=== PATIENT | female | born 1970 | race Caucasian/White ===

== ENCOUNTER → 2016-12-09 | Outpatient (CLI) | payer BC ==
[~2016-12-09] MED LIST: CELE50CA PO; KETO10TA PO; MULT-506 PO; OXYC-57 PO
[2016-12-09 13:24] LABS: BASO % 0.2 %; BASO ABS # 0.01 K/uL (0-0.2); COMPLETE YES; EOS % 1.4 %; HEMATOCRIT 37.8 % (37-47); IG% 0.2 %; LYMPH % 31.4 %; LYMPH ABS # 1.74 K/uL (1.2-3.4); MEAN CELL VOLUME 81.1 fL (80-100); MEAN CORPUSCULAR HEMOGLOBIN 27.7 pg (25-34); MEAN CORPUSCULAR HGB CONC 34.1 g/dl (32-36); MEAN PLATELET VOLUME 9.8 fL (7.4-10.4); MONO % 13.2 %; NEUT % 53.6 %; PLATELET COUNT 261 K/uL (130-400); RED BLOOD COUNT 4.66 M/uL (4.2-5.4); WHITE BLOOD COUNT 5.54 K/uL (4.8-10.8)
[2016-12-09 14:04] LABS: BLOOD UREA NITROGEN 10 mg/dl (7-18); CALCIUM 8.8 mg/dl (8.5-10.1); CARBON DIOXIDE 26 mmol/L (21-32); CHLORIDE 108 mmol/L (98-107); CREATININE 0.81 mg/dl (0.60-1.20); GLUCOSE 98 mg/dl (70-99); POTASSIUM 3.9 mmol/L (3.5-5.1); SODIUM 142 mmol/L (136-145)
== END | disposition home or self-care (01) ==
LOC: C.LABBC 10:13
PROVIDERS: ATTEND Orthopaedic Surgery
DX: Z01.812 Encounter for preprocedural laboratory examination (principal); M25.512 Pain in left shoulder

== ENCOUNTER → 2016-12-18 | Day surgery (SDC) | payer BC ==
[2016-12-12 15:56] VITALS: Ht 172.7 cm; Wt 70.5 kg
[~2016-12-18] VITALS: Ht 172.7 cm; Wt 70.5 kg
[~2016-12-18] MED LIST changes: +BUPIVACAINE 0.5 % 5 MG/1 ML MPF 30ML VIAL ONE; +BUPIVACAINE 0.5 % 5 MG/1 ML PF 10ML VIAL ONE; +DEXAMETHASONE SOD INJ 4 MG/ML VIAL ONE; +FENTANYL CITRATE INJ 50 MCG/1 ML 2 ML VIAL IV PRN; +FENTANYL CITRATE INJ 50 MCG/1 ML 2 ML VIAL ONE; +LACTATED RINGER'S 1000ML 1,000 ML IV PRN; +LACTATED RINGER'S 1000ML 1,000 ML IV SCH; +LIDOCAINE HCL 2% 2 ML VIAL (20MG/ML) ONE; +METHYLPREDNISOLONE ACETATE 80 MG/ML VIAL ONE; +MIDAZOLAM HCL 1 MG/ML 2ML VIAL ONE; +ONDANSETRON INJ 2 MG/ML 2 ML VIAL IV PRN; +OXYCODONE/ACETAMINOPHEN 5-325 TAB PO PRN; +PROPOFOL IV EMULSION 10 MG/ML 20 ML VIAL IV ONE; +SODIUM CHLORIDE 0.9% 1000ML 1,000 ML IV SCH
--- NOTE | 2016-12-18 06:43 | History & Physical Bridge - [place] ---
H&P Re-Evaluation Bridge Note: I have examined the patient, reviewed the History & Physical and in the interval since the performance of the History & Physical I have noted the following changes of clinical significance: No changes noted
[2016-12-18 08:32] VITALS: TEMP 36.4
--- NOTE | 2016-12-18 08:37 | [facility] Post Operative Brief Note ---
Immediate Operative Summary Operative Date Dec 18, 2016. Pre-Operative Diagnosis Left Shoulder Adhesive Capsulitis Post-Operative Diagnosis Same Procedure(s) Performed Left Shoulder Manipulation Under Anesthesia Surgeon Dr. Crocker Credit Collections Rep Surgeon(s) None Estimated Blood Loss 0 mL Findings as above Specimens None Complication(s) None Disposition Recovery Room / PACU
--- NOTE | 2016-12-18 08:40 | OPERATIVE REPORT ---
DATE OF OPERATION: 12/18/2016 PREOPERATIVE DIAGNOSIS: Postoperative adhesive capsulitis. POSTOPERATIVE DIAGNOSIS: Same. PROCEDURE: Manipulation under anesthesia, left shoulder. SURGEON: Dr. Ru Crocker. LOG CHAIN WORKER: None. ANESTHESIA: Sedation with a left interscalene nerve block. COMPLICATIONS: None. CONDITION: Stable to PACU. INDICATIONS: Magaly is a pleasant 46-year-old female who underwent a shoulder arthroscopy for decompression about 3 months ago. Unfortunately, postoperatively, she developed adhesive capsulitis. She was not progressing with physical therapy so elected to undergo a manipulation under anesthesia. PROCEDURE: On 12/18/2016 she arrived at [facility] for the above procedure. She was seen in the preoperative holding area and the operative extremity was identified and signed. She was given a left interscalene nerve block. She was taken back to the operating room, laid on the table in supine position and put under basic sedation. A time-out was done and the patient and operative extremity was properly identified. On preoperative examination, she had about 45 degrees of abduction and 30 degrees of external rotation. A gentle manipulation was done under anesthesia and I was able to get full range of motion. She had about 120 degrees of abduction with the scapula stabilized, 170 degrees of forward flexion and 95 degrees of external rotation with the arm in abduction. The joint was then injected with 80 mg of Depo-Medrol and 5 mL of Marcaine. She was placed in an arm sling and taken to the postanesthesia care unit in stable condition. She tolerated the procedure well. I attest to the content of the Intraoperative Record and any orders documented therein. Any exceptions are noted below. MTDDanny
--- NOTE | 2016-12-18 08:46 | Discharge Instructions-SurgCtr ---
Discharge Instructions Date of Service Dec 18, 2016. Visit Reason for Visit: Left Shoulder Adhesive Capsulitis, Joint Pain Discharge Discharge Diagnosis / Problem: SAME ABOVE Discharge Goals Goal(s): Decrease discomfort, Improve function Activity Recommendations Activity Limitations: as noted below Lifting Limitations: gradually increase as tolerated Exercise/Sports Limitations: gradually increase as tolerated Driving or Machine Use: WHEN PAIN IS TOLERATED AND OFF OF NARCOTICS Anesthesia . Post Anesthesia Instructions: If you have had General Anesthesia or IV Sedation: * Do not drive today. * Resume driving when surgeon permits. * Do not make important decisions or sign legal documents today. * Call surgeon for: 1. Temperature elevations greater than 101 degrees F. 2. Uncontrollable pain. 3. Excessive bleeding. 4. Persistent nausea and vomiting. 5. Medication intolerance (nausea, vomiting or rash). * For nausea and vomiting use only clear liquids such as: tea, soda, bouillon until nausea subsides, then gradually increase diet as tolerated. * If you have any concerns or questions, call your surgeon's office. If physician is unavailable and it is an emergency, call 911 or go to the nearest emergency room. . Instructions / Follow-Up Instructions / Follow-Up MEDICATIONS: * Resume previous medications unless instructed otherwise by your surgeon. * Always take pain medication on a full stomach or with food to avoid upset stomach. * Do not drink alcohol or drive while taking narcotics. * Ibuprofen or Tylenol may be taken if narcotic not needed. SPECIAL CARE INSTRUCTIONS: __ None _X_ Keep extremity elevated and iced x 48 hours; apply ice 20-30 minutes 8-10 times/day. May remove at night. _X_ Sling (REMOVE TOMORROW) __24 hrs/day __ Remove at night __ Shoulder Immobilizer __ 24 hrs/day __ Remove at night __ Dressing __ Maintain until seen in office, may shower with plastic over site __ Remove dressings in 24-48 hours and then may shower __ Cover incisions with band-aids after showering __ Do not remove steri-strips Call physician if chills or temperature rises above 102 degrees or pain unrelieved by prescribed pain medications at . . Diet Recommendations Home Diet: no limitations Fluid Restriction: None Procedures Procedures Performed: Left Shoulder Manipulation Under Anesthesia Pending Studies Studies pending at discharge: no Work Instructions Return To Work: 3 days (OR WHEN PAIN IS TOLERABLE ) Medical Emergencies . Who to Call and When: Medical Emergencies: If at any time you feel your situation is an emergency, please call 911 immediately. . Non-Emergent Contact Non-Emergency issues call your: Primary Care Provider Call Non-Emergent contact if: you have a fever, temperature is above 101.5 . . "Provider Documentation" section prepared by Sandip Malagon.
[2016-12-18 08:58] VITALS: BP 113/78; O2SAT 99
--- NOTE | 2016-12-18 09:02 | Anesthesia Progress Nt - [facility] ---
Anesthesia Post Op Note Date & Time Dec 18, 2016 at 09:03 Vital Signs Pain Intensity: 0 Vital Signs Past 12 Hours Date Time Temp Pulse Resp B/P Pulse Ox O2 Delivery O2 Flow Rate FiO2 12/18/16 08:58 70 16 113/78 99 Room Air 12/18/16 08:32 36.4 73 14 111/76 98 Room Air 12/18/16 08:10 81 10 132/76 100 12/18/16 08:10 82 12/18/16 08:05 65 12/18/16 08:05 65 10 132/79 100 12/18/16 08:00 76 10 112/77 100 12/18/16 08:00 72 12/18/16 07:55 68 5 120/80 100 12/18/16 07:55 66 12/18/16 07:50 76 12/18/16 07:50 77 4 120/84 99 12/18/16 07:45 78 13 130/84 100 12/18/16 07:45 76 12/18/16 07:43 115/80 12/18/16 07:40 83 0 12/18/16 07:35 77 0 12/18/16 07:30 78 0 12/18/16 07:25 0 12/18/16 07:20 0 12/18/16 07:15 0 12/18/16 07:10 0 12/18/16 07:05 0 12/18/16 06:48 36.3 84 16 124/79 99 Room Air Notes Mental Status: alert / awake / arousable, participated in evaluation Pt Amnestic to Procedure: Yes Nausea / Vomiting: adequately controlled Pain: adequately controlled Airway Patency, RR, SpO2: stable & adequate BP & HR: stable & adequate Hydration State: stable & adequate Anesthetic Complications: no major complications apparent Pt doing very well.
== END | disposition home or self-care (01) ==
LOC: X.SURG 06:36
PROVIDERS: ATTEND Orthopaedic Surgery
DX: M75.02 Adhesive capsulitis of left shoulder (principal); Z88.7 Allergy status to serum and vaccine

== ENCOUNTER 2020-04-23 08:23 | Observation (INO) ==
[2020-04-23] MEDS ORDERED: ONDANSETRON 4 MG OD TAB PO STA (09:34)
[2020-04-23] MEDS ORDERED: HYDROmorphone INJ 1 MG/ML SYRINGE IM STA (09:34)
--- NOTE | 2020-04-23 09:48 | Emergency Department Note ---
Impression & Plan Left acetabular fracture ED Provider Note CHIEF COMPLAINT: Left hip pain HISTORY OF PRESENT ILLNESS: This 50-year-old female patient presents to the emergency department via ambulance approximately 2 hours after sustaining an injury to the left hip. The patient states she was running, felt a pop in the left hip, stepped funny, then fell. She believes she landed on her left hip, but is unclear. She states she was unable to ambulate after this and had to be carried off of the [place] and out of the kee. The patient denies any history of injury to this hip or leg. She states last week, she fell and landed on the right hip, so does have some bruising in that area. She states she went on an 11 mile hike yesterday, so was very sore this morning upon waking up. Patient does follow with Dr. Jake rodgers of orthopedics. She has taken no medications for her symptoms with the exception of some Tylenol at 6 AM. Patient denies any numbness, tingling, weakness, or inability to move the left lower extremity. She denies any loss of control of her bowel or bladder function. She denies any back pain. She did not strike her head when she fell. REVIEW OF SYSTEMS: A 10 system review of systems was performed with positives and pertinent negatives listed in the history of present illness. All other systems were reviewed and are negative. ALLERGIES: Tetanus toxoid PHYSICAL EXAM: VITALS: Vitals are noted on the nurse's note and reviewed by myself. Vital signs stable. GENERAL: This is a 50-year-old white female, in no acute distress, nondiaphoretic, well-developed well-nourished. MUSCULOSKELETAL -left hip without erythema, edema, and ecchymosis. Moderate tenderness to palpation appreciated over the hip joint. No tenderness extending into the upper leg or buttocks. Pt with with limited AROM at left hip joint due to discomfort and unwillingness to move the extremity. Patient maintains full passive range of motion at left hip joint. Equal strength Left vs. Right in the bilateral lower extremity. No tenderness to palpation appreciated in the lumbar spine distribution. NEUROLOGIC/VASCULAR - Neurovascularly intact distally with +3/5 dorsalis pedis pulses palpated bilaterally. Equal sensation to light and sharp touch appreciated distally. RADIOLOGY: XR hip LT 2V w pelvis CLINICAL HISTORY: pain, "heard a pop", fall while trail running trauma. Pain. COMPARISON: None. DISCUSSION: Nondisplaced comminuted fracture left acetabulum. The hips are unremarkable. No evidence for dislocation or acetabular protrusion. Sacroiliac joints are patent bilaterally. There is no evidence for soft tissue swelling. IMPRESSION: Comminuted nondisplaced fracture left acetabulum. ACT 112: Negative or not required by law. The above report was generated using voice recognition software. It may contain grammatical, syntax or spelling errors. Electronically signed by: Donavan Ricardo M.D. 04/23/2020 9:[address] SCAN OF THE LEFT HIP WITHOUT IV CONTRAST CLINICAL HISTORY: Left acetabular fracture. COMPARISON STUDY: Radiographs of the left hip and bony pelvis performed the same day 04/23/2020. TECHNIQUE: CT scan of the left hip is performed from the bony pelvis to the femoral shaft. Images are reviewed in the axial, sagittal, and coronal planes. IV contrast was not administered for this examination. A dose lowering technique was utilized adhering to the principles of ALARA. FINDINGS: The skeletal structures are well mineralized. There is a minimally distracted oblique acetabular fracture. This extends from the medial ilial cortex and extends inferiorly through the roof of the left acetabulum in the AP plane. This involves the anterior and posterior leary of the acetabulum. There is comminution of the posterior wall of the left acetabulum. Mild surrounding hemorrhage is noted. The left pubic ring is intact. The left proximal femur is intact. There is no significant joint effusion. No lytic or blastic lesion is seen. The regional musculature is normal in appearance. IMPRESSION: 1. Left acetabular fracture as above. 2. The left proximal femur is intact. ACT 112: Negative or not required by law. Electronically signed by: Jassi Louis M.D. 04/23/2020 10:57 AM EMERGENCY DEPARTMENT COURSE: Patient was seen and evaluated as above. She was offered analgesics and declined at this time. The patient's then ran into Dr. Caruso in the hallway and did request pain medication. This was ordered by Dr. Caruso. X-rays performed reviewed by myself and radiologist as above. I discussed findings with patient at bedside. She was reassessed and notes significant improvement of her symptoms. I did discuss the case with orthopedics. I spoke with Casey Hudson who spoke with Dr. Fajardo. They did recommend obtaining a CT scan of the pelvis, obtaining a physical therapy eval to be nonweightbearing of the left lower extremity, and will follow up with the patient as an outpatient. CT scan performed reviewed by myself and radiologist as above. Physical therapy was consulted. They did come and evaluate the patient and do n ot feel that the patient can safely be discharged to home at this time. I did assist with the evaluation and agree. The patient had multiple episodes of diaphoresis, hypotension, and dizziness while obtaining to walk. She was unable to ambulate more than 3 steps without heavy assist. The patient was not pre- medicated with narcotic pain medication prior to PT evaluation, so this was completed and re-eval completed approximately 45 minutes later. I discussed the case with the personalized living manager nurse. IV access obtained, labs drawn. I discussed the case again with Dr. Fajardo, orthopedic surgeon marketing communications specialist. He did agree to admit the patient for the night with repeat evaluation by PT in the morning with discussion regarding placement at that time. Please see orthopedics and PT evaluation for ongoing management and care of this patient. Differential diagnosis includes fracture, subluxation, dislocation, contusion, ligamentous injury, neurovascular, compartment syndrome, rhabdomyolysis, as well as other pathologies. I attest that I have personally reviewed the patient's current medication list. Patient was found to have normal blood pressure on screening and does not require follow-up. The chart was completed utilizing [employer] Speech voice recognition software. Grammatical errors, random word insertions, pronoun errors, and incomplete sentences are an occasional consequence of this system due to software limitations, ambient noise, and hardware issues. Any formal questions or concern s about the content, text, or information contained within the body of this dictation should be directly addressed to the provider for clarification. Past Med/Surg History Medical History No pertinent past medical history Social History Smoking Status: Never smoker Feels Safe at Home: Yes Allergies Allergies Allergy/AdvReac Type Severity Reaction Status Date / Time cucumber Allergy Intermediate Pickles - Verified 04/23/20 09:18 lip swelling tetanus toxoid, adsorbed Allergy Intermediate SEVERE Verified 04/23/20 09:18 NAUSEA Home Meds Home Medications Medication Instructions Recorded Confirmed acetaminophen [Tylenol Extra 500 mg PO UD PRN 04/23/20 04/23/20 Strength] glucosamine-chondroitin [Osteo 1 tab PO BID 04/23/20 04/23/20 Bi-Flex] multivitamin 1 tab PO HS 04/23/20 04/23/20 Results & Data (ED) Vital Signs Vital Signs - 24 hr 04/23/20 08:41 04/23/20 10:50 04/23/20 12:43 Temperature 36.5 C Temperature Source Oral Pulse Rate 71 Pulse Rate [Right Finger] 83 61 Pulse Rhythm Regular Pulse Rhythm [Right Finger] Regular Pulse Strength Normal Pulse Strength [Right Finger] Normal Respiratory Rate 18 18 17 Respiratory Effort / Characteristics Non-Labored Spontaneous Non-Labored Spontaneous Respiratory Depth Normal Normal Respiratory Pattern Regular Blood Pressure 122/72 Blood Pressure [Right Arm] 135/73 114/74 Blood Pressure Mean 88 Blood Pressure Mean [Right Arm] 93 87 Blood Pressure Position Lying Pulse Oximetry 98 98 99 Oxygen Delivery Method Room Air Room Air Room Air Sepsis Recent Fever Within 48 Hours No Sepsis New/Unexplained Change in Mental Status N/A Sepsis Action Taken by Nursing No Action Required 04/23/20 15:40 Temperature Temperature Source Pulse Rate Pulse Rate [Right Finger] 61 Pulse Rhythm Pulse Rhythm [Right Finger] Pulse Strength Pulse Strength [Right Finger] Respiratory Rate 17 Respiratory Effort / Characteristics Respiratory Depth Respiratory Pattern Blood Pressure Blood Pressure [Right Arm] 103/62 Blood Pressure Mean Blood Pressure Mean [Right Arm] 75 Blood Pressure Position Pulse Oximetry 97 Oxygen Delivery Method Room Air Sepsis Recent Fever Within 48 Hours Sepsis New/Unexplained Change in Mental Status Sepsis Action Taken by Nursing Laboratory Data Result diagrams: 04/23/20 15:48 04/23/20 15:48 Administered Medications Discontinued Medications Hydromorphone HCl (Dilaudid) 1 mg IM NOW STA Stop: 04/23/20 09:35 Last Admin: 04/23/20 09:52 Dose: 1 mg Documented by: [id number] Ondansetron HCl (Zofran Odt) 4 mg PO NOW STA Stop: 04/23/20 09:35 Last Admin: 04/23/20 09:52 Dose: 4 mg Documented by: [id number] Oxycodone HCl (Roxicodone Immediate Rel) 5 mg PO NOW STA Stop: 04/23/20 14:47 Last Admin: 04/23/20 14:51 Dose: 5 mg Documented by: [id number] Discharge Plan Visit Data Chief Complaint: Hip Pain ED Provider: Ajay Caruso ED Midlevel Provider: Winnie Phillips Discharge Problem: Left acetabular fracture Patient Disposition: Admitted As Inpatient Forms Stand Alone Forms: [facility] Prescriptions Prescriptions: No Action multivitamin Tablet 1 tab PO HS RF: 0 acetaminophen [Tylenol Extra Strength] 500 mg Tablet 500 mg PO UD PRN (Reason: Pain) RF: 0 glucosamine-chondroitin [Osteo Bi-Flex] 250-200 mg Tablet 1 tab PO BID RF: 0 Referrals Referrals: Eloy Guerrero MD [Primary Care Provider] -
--- NOTE | 2020-04-23 09:51 | XRay Report ---
XR hip LT 2V w pelvis CLINICAL HISTORY: pain, "heard a pop", fall while trail running trauma. Pain. COMPARISON: None. DISCUSSION: Nondisplaced comminuted fracture left acetabulum. The hips are unremarkable. No evidence for dislocation or acetabular protrusion. Sacroiliac joints are patent bilaterally. There is no evidence for soft tissue swelling. IMPRESSION: Comminuted nondisplaced fracture left acetabulum. ACT 112: Negative or not required by law. The above report was generated using voice recognition software. It may contain grammatical, syntax or spelling errors. Electronically signed by: Donavan Ricardo M.D. 04/23/2020 9:50 AM
--- NOTE | 2020-04-23 10:59 | CT Scan Report ---
CT SCAN OF THE LEFT HIP WITHOUT IV CONTRAST CLINICAL HISTORY: Left acetabular fracture. COMPARISON STUDY: Radiographs of the left hip and bony pelvis performed the same day 04/23/2020. TECHNIQUE: CT scan of the left hip is performed from the bony pelvis to the femoral shaft. Images are reviewed in the axial, sagittal, and coronal planes. IV contrast was not administered for this exami nation. A dose lowering technique was utilized adhering to the principles of ALARA. FINDINGS: The skeletal structures are well mineralized. There is a minimally distracted oblique aceta bular fracture. This extends from the medial ilial cortex and extends inferiorly through the roof of the left acetabulum in the AP plane. This involves the anterior and posterior leary of the acetabulum . There is comminution of the posterior wall of the left acetabulum. Mild surrounding hemorrhage is n oted. The left pubic ring is intact. The left proximal femur is intact. There is no significant joint effusion. No lytic or blastic lesion is seen. The regional musculature is normal in appearance. IMPRESSION: 1. Left acetabular fracture as above. 2. The left proximal femur is intact. ACT 112: Negative or not required by law. Electronically signed by: Jassi Louis M.D. 04/23/2020 10:57 AM
[2020-04-23] MEDS ORDERED: OXYCODONE HCL IR 5 MG TAB (IMMEDIATE RELEASE) PO STA (14:46)
[2020-04-23] MEDS ORDERED: SODIUM CHLORIDE 0.9% 1000ML 1,000 ML IV ONE (15:39)
[2020-04-23] MEDS ORDERED: OXYCODONE HCL IR 5 MG TAB (IMMEDIATE RELEASE) PO PRN (15:54)
[2020-04-23] MEDS ORDERED: ONDANSETRON INJ 2 MG/ML 2 ML VIAL IV PRN (15:54)
--- NOTE | 2020-04-23 15:54 | History & Physical Report ---
Date of Service April 23, 2020 Assessment & Plan (1) Left acetabular fracture: Patient assessed by PT, unable to return to home safely, will admit for observation and pain control, pending re-evaluation by PT, the plan will be discharge home vs rehab. Patient is to maintain toe touch NWB LLE, pain control, Ice to affected area. History of Present Illness Chief Complaint: Left acetabular fracture Primary Care Provider: Eloy Guerrero MD The patient is a 50-year-old female who presented to [facility] on 04/23/2028 secondary to trauma and pain to the left hip. Patient reports she was running yesterday and felt a pop in her left hip when she misstepped, subsequently fell onto her left side, developed increasing pain to the left hip with inability to ambulate. At [facility] CT and x- rays were performed which demonstrated minimally displaced acetabular fracture. We admitted her for pain control and reevaluation by physical therapy. Patient denies hitting head or loss of consciousness. Denies any associated injuries. Allergies Allergy/AdvReac Type Severity Reaction Status Date / Time cucumber Allergy Intermediate Pickles - Verified 04/23/20 09:18 lip swelling tetanus toxoid, adsorbed Allergy Intermediate SEVERE Verified 04/23/20 09:18 NAUSEA Home Medications Home Medications Medication Instructions Recorded Confirmed Type acetaminophen [Tylenol Extra 500 mg PO UD PRN 04/23/20 04/23/20 History Strength] glucosamine-chondroitin [Osteo 1 tab PO BID 04/23/20 04/23/20 History Bi-Flex] multivitamin 1 tab PO HS 04/23/20 04/23/20 History Past Med/Surg History Medical History No pertinent past medical history Social History Smoking Status: Never smoker Do You Dip or Chew Tobacco: No; Hx Alcohol Use: No Hx Substance Use: No Preferred Language: Citizen Of The [place] Communication Ability: Effective Director Of Occupational Health Required: No Beliefs That Will Affect Care: None Current Living Situation: Family Other Information That Helps Us Care for You: No Feels Safe at Home: Yes Safety Concerns: Feels Safe At This Time Review of Systems Review of Systems: All systems reviewed & are unremarkable except as noted in HPI & below Constitutional: as per Subjective / HPI Physical Exam Physical Exam: LLE NVSI +EHL/FHL/TA/GS SILT grossly, +2 DP pulse, compartments soft NT, limited painful ROM of the hip Constitutional: WD/WN, vitals as above Eyes: PERRL, conjunctivae normal, anicteric sclerae ENMT: external ear and nose normal, oropharynx normal Neck: trachea midline, no thyromegaly Respiratory: normal respiratory effort, lungs clear to auscultation Cardiovascular: RRR, no murmur, no edema Gastrointestinal (Abdomen): normal bowel sounds, soft, nontender, no hepatosplenomegaly Musculoskeletal: no cyanosis or clubbing, extremities motor strength 5/5 Skin: no rashes, warm and dry Neurologic: patellar DTR's 2+ bilat, sensation intact Psychiatric: A+Ox3, euthymic affect Lymphatic: no cervical or axillary lymphadenopathy Results & Data Results & Data ([facility]) Vital Signs (Past 12 Hours) Vital Signs Temp Pulse Pulse Resp BP BP Pulse Ox 04/23/20 15:40 61 17 103/62 97 04/23/20 12:43 61 17 114/74 99 04/23/20 10:50 83 18 135/73 98 04/23/20 08:41 36.5 C 71 18 122/72 98 Laboratory Results 04/24/20 04/24/20 04/23/20 Range/Units 06:08 06:08 16:00 WBC 8.80 (4.8-10.8) K/uL RBC 3.79 L (4.2-5.4) M/uL Hgb 10.8 L (12.0-16.0) g/dL Hct 32.5 L (37-47) % MCV 85.8 (80-100) fL MCH 28.5 (25-34) pg MCHC 33.2 (32-36) g/dL RDW Std Deviation 43.1 (36.4-46.3) fL RDW Coeff of Alfonso 14.3 (11.5-14.5) % Plt Count 247 (130-400) K/uL MPV 8.7 (7.4-10.4) fL Immature Gran % (Auto) 0.2 % Neut % (Auto) 60.8 % Lymph % (Auto) 26.6 % [place] % (Auto) 11.6 % Eos % (Auto) 0.7 % Baso % (Auto) 0.1 % Neut # (Auto) 5.35 (1.4-6.5) K/uL Lymph # (Auto) 2.34 (1.2-3.4) K/uL [place] # (Auto) 1.02 H (0.11-0.59) K/uL Eos # (Auto) 0.06 (0-0.5) K/uL Baso # (Auto) 0.01 (0-0.2) K/uL Immature Gran # (Auto) 0.02 (0.00-0.02) K/uL PT 10.6 (9.0-12.0) Seconds INR 1.0 (0.9-1.1) Sodium 140 (136-145) mmol/L Potassium 3.7 (3.5-5.1) mmol/L Chloride 108 H (98-107) mmol/L Carbon Dioxide 26 (21-32) mmol/L Anion Gap 6.0 (3-11) BUN 12 (7-18) mg/dl Creatinine 0.76 D (0.6-1.2) mg/dl Est Cr Clr Drug Dosing 89.3 Est GFR ( Amer) 106.0 Est GFR (Non-Af Amer) 91.5 BUN/Creatinine Ratio 16.5 (10-20) Glucose 109 H (70-99) mg/dl Calcium 8.3 L (8.5-10.1) mg/dl Total Bilirubin (0.2-1) mg/dl AST (15-37) U/L ALT (12-78) U/L Alkaline Phosphatase (45-117) U/L Total Protein (6.4-8.2) gm/dl Albumin (3.4-5.0) gm/dl Globulin (2.5-4.0) gm/dl Albumin/Globulin Ratio (0.9-2) 04/23/20 04/23/20 Range/Units 15:48 15:48 WBC 11.52 H (4.8-10.8) K/uL RBC 4.51 (4.2-5.4) M/uL Hgb 12.7 (12.0-16.0) g/dL Hct 38.3 (37-47) % MCV 84.9 (80-100) fL MCH 28.2 (25-34) pg MCHC 33.2 (32-36) g/dL RDW Std Deviation 41.5 (36.4-46.3) fL RDW Coeff of Alfonso 13.9 (11.5-14.5) % Plt Count 296 (130-400) K/uL MPV 8.7 (7.4-10.4) fL Immature Gran % (Auto) 0.4 % Neut % (Auto) 71.3 % Lymph % (Auto) 18.5 % [place] % (Auto) 9.3 % Eos % (Auto) 0.3 % Baso % (Auto) 0.2 % Neut # (Auto) 8.22 H (1.4-6.5) K/uL Lymph # (Auto) 2.13 (1.2-3.4) K/uL [place] # (Auto) 1.07 H (0.11-0.59) K/uL Eos # (Auto) 0.03 (0-0.5) K/uL Baso # (Auto) 0.02 (0-0.2) K/uL Immature Gran # (Auto) 0.05 H (0.00-0.02) K/uL PT (9.0-12.0) Seconds INR (0.9-1.1) Sodium 141 (136-145) mmol/L Potassium 4.2 (3.5-5.1) mmol/L Chloride 107 (98-107) mmol/L Carbon Dioxide 26 (21-32) mmol/L Anion Gap 8.0 (3-11) BUN 12 (7-18) mg/dl Creatinine 1.18 (0.6-1.2) mg/dl Est Cr Clr Drug Dosing Not Reportable Est GFR ( Amer) 62.3 Est GFR (Non-Af Amer) 53.7 BUN/Creatinine Ratio 10.3 (10-20) Glucose 123 H (70-99) mg/dl Calcium 9.0 (8.5-10.1) mg/dl Total Bilirubin 0.4 (0.2-1) mg/dl AST 46 H (15-37) U/L ALT 96 H (12-78) U/L Alkaline Phosphatase 99 (45-117) U/L Total Protein 8.1 (6.4-8.2) gm/dl Albumin 3.5 (3.4-5.0) gm/dl Globulin 4.6 H (2.5-4.0) gm/dl Albumin/Globulin Ratio 0.8 L (0.9-2) Diagnostic Findings XR hip LT 2V w pelvis CLINICAL HISTORY: pain, "heard a pop", fall while trail running trauma. Pain. COMPARISON: None. DISCUSSION: Nondisplaced comminuted fracture left acetabulum. The hips are unremarkable. No evidence for dislocation or acetabular protrusion. Sacroiliac joints are patent bilaterally. There is no evidence for soft tissue swelling. IMPRESSION: Comminuted nondisplaced fracture left acetabulum. CT SCAN OF THE LEFT HIP WITHOUT IV CONTRAST CLINICAL HISTORY: Left acetabular fracture. COMPARISON STUDY: Radiographs of the left hip and bony pelvis performed the same day 04/23/2020. TECHNIQUE: CT scan of the left hip is performed from the bony pelvis to the femoral shaft. Images are reviewed in the axial, sagittal, and coronal planes. IV contrast was not administered for this examination. A dose lowering technique was utilized adhering to the principles of ALARA. FINDINGS: The skeletal structures are well mineralized. There is a minimally distracted oblique acetabular fracture. This extends from the medial ilial cortex and extends inferiorly through the roof of the left acetabulum in the AP plane. This involves the anterior and posterior leary of the acetabulum. There is comminution of the posterior wall of the left acetabulum. Mild surrounding hemorrhage is noted. The left pubic ring is intact. The left proximal femur is intact. There is no significant joint effusion. No lytic or blastic lesion is seen. The regional musculature is normal in appearance. IMPRESSION: 1. Left acetabular fracture as above. 2. The left proximal femur is intact.
[2020-04-23 15:57] LABS: Basophils # (auto) 0.02 K/uL (0-0.2); Basophils % (auto) 0.2 %; Eosinophils # (auto) 0.03 K/uL (0-0.5); Eosinophils % (auto) 0.3 %; Hematocrit (blood only) 38.3 % (37-47); Hemoglobin 12.7 g/dL (12.0-16.0); Immature Granulocytes # (auto) 0.05 K/uL (0.00-0.02); Immature Granulocytes % (auto) 0.4 %; Lymphocytes # (auto) 2.13 K/uL (1.2-3.4); Lymphocytes % (auto) 18.5 %; Mean Corpuscular Hemoglobin 28.2 pg (25-34); Mean Corpuscular Hgb Conc 33.2 g/dL (32-36); Mean Corpuscular Volume 84.9 fL (80-100); Mean Platelet Volume 8.7 fL (7.4-10.4); Monocytes # (auto) 1.07 K/uL (0.11-0.59); Monocytes % (auto) 9.3 %; Neutrophils # (auto) 8.22 K/uL (1.4-6.5); Neutrophils % (auto) 71.3 %; Platelet Count 296 K/uL (130-400); RDW Coefficient of Variation 13.9 % (11.5-14.5); RDW Standard Deviation 41.5 fL (36.4-46.3); Red Blood Count 4.51 M/uL (4.2-5.4); White Blood Count 11.52 K/uL (4.8-10.8)
[2020-04-23] MEDS ORDERED: ACETAMINOPHEN 500 MG TAB PO PRN (15:59)
[2020-04-23 16:13] LABS: Prothrombin Time 10.6 Seconds (9.0-12.0)
[2020-04-23 16:16] LABS: Alanine Aminotransferase 96 U/L (12-78); Albumin Level 3.5 gm/dl (3.4-5.0); Aspartate Aminotransferase 46 U/L (15-37); BUN Creatinine Ratio 10.3 (10-20); Blood Urea Nitrogen 12 mg/dl (7-18); Carbon Dioxide 26 mmol/L (21-32); Chloride 107 mmol/L (98-107); Est GFR (African American) 62.3; Est GFR (Non-African American) 53.7; Glucose 123 mg/dl (70-99); Potassium 4.2 mmol/L (3.5-5.1); Sodium 141 mmol/L (136-145)
[2020-04-23 16:19] LABS: Albumin Globulin Ratio 0.8 (0.9-2); Alkaline Phosphatase 99 U/L (45-117); Bilirubin,Total 0.4 mg/dl (0.2-1); Globulin 4.6 gm/dl (2.5-4.0); Total Protein 8.1 gm/dl (6.4-8.2)
[2020-04-23] MEDS: HYDROmorphone INJ 0.5 MG/0.5 ML SYR IV PRN ×2 (16:31→20:53)
[2020-04-23] MEDS ORDERED: PATIENT'S HEIGHT AND/OR WEIGHT NEEDED SCH (17:00)
[2020-04-24] MEDS: HYDROmorphone INJ 0.5 MG/0.5 ML SYR IV PRN (01:59)
[2020-04-24] MEDS: KETOROLAC 30 MG/ML VIAL IV PRN ×3 (02:22→15:02)
[2020-04-24 06:34] LABS: Basophils # (auto) 0.01 K/uL (0-0.2); Basophils % (auto) 0.1 %; Eosinophils # (auto) 0.06 K/uL (0-0.5); Eosinophils % (auto) 0.7 %; Hematocrit (blood only) 32.5 % (37-47); Hemoglobin 10.8 g/dL (12.0-16.0); Immature Granulocytes # (auto) 0.02 K/uL (0.00-0.02); Immature Granulocytes % (auto) 0.2 %; Lymphocytes # (auto) 2.34 K/uL (1.2-3.4); Lymphocytes % (auto) 26.6 %; Mean Corpuscular Hemoglobin 28.5 pg (25-34); Mean Corpuscular Hgb Conc 33.2 g/dL (32-36); Mean Corpuscular Volume 85.8 fL (80-100); Mean Platelet Volume 8.7 fL (7.4-10.4); Monocytes # (auto) 1.02 K/uL (0.11-0.59); Monocytes % (auto) 11.6 %; Neutrophils # (auto) 5.35 K/uL (1.4-6.5); Neutrophils % (auto) 60.8 %; Platelet Count 247 K/uL (130-400); RDW Coefficient of Variation 14.3 % (11.5-14.5); RDW Standard Deviation 43.1 fL (36.4-46.3); Red Blood Count 3.79 M/uL (4.2-5.4)
[2020-04-24 07:09] LABS: BUN Creatinine Ratio 16.5 (10-20); Calcium 8.3 mg/dl (8.5-10.1); Creatinine Clr Calc Pharmacy 89.3 ml/min; Est GFR (Non-African American) 91.5; Potassium 3.7 mmol/L (3.5-5.1)
--- NOTE | 2020-04-24 07:27 | Orthopedic Progress Note ---
Date of Service April 24, 2020 Assessment & Plan (1) Left acetabular fracture: -Nonweightbearing left lower extremity -Pain control -Reevaluation by physical therapy -Pending therapy evaluation and and pain control, discharge home versus rehab Admission and Anticipated Discharge Date Admission Date: April 23, 2020 Subjective Patient seen sitting in bed upright, just ambulated to the bathroom, pain much improved this morning, no acute issues overnight, denies any numbness or tingling to her left lower extremity. Review of Systems Review of Systems: All systems reviewed & are unremarkable except as noted in HPI & below Constitutional: as per Subjective / HPI Physical Exam Physical Exam: LLE NVSI +EHL/FHL/TA/GS SILT grossly, +2 DP pulse, compartments soft NT, limited painful range of motion of the hip. Constitutional: WD/WN, vitals as above Results & Data ([facility]) Vital Signs (Past 12 Hours) Vital Signs Temp Pulse Resp BP Pulse Ox 04/23/20 22:53 36.9 C 62 16 100/64 98 Laboratory Results 04/24/20 04/24/20 04/23/20 Range/Units 06:08 06:08 16:00 WBC 8.80 (4.8-10.8) K/uL RBC 3.79 L (4.2-5.4) M/uL Hgb 10.8 L (12.0-16.0) g/dL Hct 32.5 L (37-47) % MCV 85.8 (80-100) fL MCH 28.5 (25-34) pg MCHC 33.2 (32-36) g/dL RDW Std Deviation 43.1 (36.4-46.3) fL RDW Coeff of Alfonso 14.3 (11.5-14.5) % Plt Count 247 (130-400) K/uL MPV 8.7 (7.4-10.4) fL Immature Gran % (Auto) 0.2 % Neut % (Auto) 60.8 % Lymph % (Auto) 26.6 % [place] % (Auto) 11.6 % Eos % (Auto) 0.7 % Baso % (Auto) 0.1 % Neut # (Auto) 5.35 (1.4-6.5) K/uL Lymph # (Auto) 2.34 (1.2-3.4) K/uL [place] # (Auto) 1.02 H (0.11-0.59) K/uL Eos # (Auto) 0.06 (0-0.5) K/uL Baso # (Auto) 0.01 (0-0.2) K/uL Immature Gran # (Auto) 0.02 (0.00-0.02) K/uL PT 10.6 (9.0-12.0) Seconds INR 1.0 (0.9-1.1) Sodium 140 (136-145) mmol/L Potassium 3.7 (3.5-5.1) mmol/L Chloride 108 H (98-107) mmol/L Carbon Dioxide 26 (21-32) mmol/L Anion Gap 6.0 (3-11) BUN 12 (7-18) mg/dl Creatinine 0.76 D (0.6-1.2) mg/dl Est Cr Clr Drug Dosing 89.3 Est GFR ( Amer) 106.0 Est GFR (Non-Af Amer) 91.5 BUN/Creatinine Ratio 16.5 (10-20) Glucose 109 H (70-99) mg/dl Calcium 8.3 L (8.5-10.1) mg/dl Total Bilirubin (0.2-1) mg/dl AST (15-37) U/L ALT (12-78) U/L Alkaline Phosphatase (45-117) U/L Total Protein (6.4-8.2) gm/dl Albumin (3.4-5.0) gm/dl Globulin (2.5-4.0) gm/dl Albumin/Globulin Ratio (0.9-2) 04/23/20 04/23/20 Range/Units 15:48 15:48 WBC 11.52 H (4.8-10.8) K/uL RBC 4.51 (4.2-5.4) M/uL Hgb 12.7 (12.0-16.0) g/dL Hct 38.3 (37-47) % MCV 84.9 (80-100) fL MCH 28.2 (25-34) pg MCHC 33.2 (32-36) g/dL RDW Std Deviation 41.5 (36.4-46.3) fL RDW Coeff of Alfonso 13.9 (11.5-14.5) % Plt Count 296 (130-400) K/uL MPV 8.7 (7.4-10.4) fL Immature Gran % (Auto) 0.4 % Neut % (Auto) 71.3 % Lymph % (Auto) 18.5 % [place] % (Auto) 9.3 % Eos % (Auto) 0.3 % Baso % (Auto) 0.2 % Neut # (Auto) 8.22 H (1.4-6.5) K/uL Lymph # (Auto) 2.13 (1.2-3.4) K/uL [place] # (Auto) 1.07 H (0.11-0.59) K/uL Eos # (Auto) 0.03 (0-0.5) K/uL Baso # (Auto) 0.02 (0-0.2) K/uL Immature Gran # (Auto) 0.05 H (0.00-0.02) K/uL PT (9.0-12.0) Seconds INR (0.9-1.1) Sodium 141 (136-145) mmol/L Potassium 4.2 (3.5-5.1) mmol/L Chloride 107 (98-107) mmol/L Carbon Dioxide 26 (21-32) mmol/L Anion Gap 8.0 (3-11) BUN 12 (7-18) mg/dl Creatinine 1.18 (0.6-1.2) mg/dl Est Cr Clr Drug Dosing Not Reportable Est GFR ( Amer) 62.3 Est GFR (Non-Af Amer) 53.7 BUN/Creatinine Ratio 10.3 (10-20) Glucose 123 H (70-99) mg/dl Calcium 9.0 (8.5-10.1) mg/dl Total Bilirubin 0.4 (0.2-1) mg/dl AST 46 H (15-37) U/L ALT 96 H (12-78) U/L Alkaline Phosphatase 99 (45-117) U/L Total Protein 8.1 (6.4-8.2) gm/dl Albumin 3.5 (3.4-5.0) gm/dl Globulin 4.6 H (2.5-4.0) gm/dl Albumin/Globulin Ratio 0.8 L (0.9-2) (1) Left acetabular fracture Encounter type: initial encounter Fracture alignment: nondisplaced Fracture type: closed Sublocation of acetabulum: unspecified portion of acetabulum Qualified Code(s): S32.402A - Unspecified fracture of left acetabulum, initial encounter for closed fracture
[2020-04-24] MEDS ORDERED: ENOXAPARIN INJ 40 MG/0.4 ML SYR SQ SCH (09:00)
--- NOTE | 2020-04-25 21:45 | Discharge Summary ---
Date of Service April 25, 2020 Admission HPI Per Admitting Provider The patient is a 50-year-old female who presented to [facility] on 04/23/2028 secondary to trauma and pain to the left hip. Patient reports she was running yesterday and felt a pop in her left hip when she misstepped, subsequently fell onto her left side, developed increasing pain to the left hip with inability to ambulate. At [facility] CT and x- rays were performed which demonstrated minimally displaced acetabular fracture. We admitted her for pain control and reevaluation by physical therapy. Patient denies hitting head or loss of consciousness. Denies any associated injuries. Principal Diagnosis Left acetabular fracture Discharge Exam LLE NVSI +EHL/FHL/TA/GS SILT grossly, +2 DP pulse, compartments soft NT, limited painful ROM of the hip Constitutional WD/WN, vitals as above Discharge Data Allergies Allergy/AdvReac Type Severity Reaction Status Date / Time cucumber Allergy Intermediate Pickles - Verified 04/23/20 09:18 lip swelling tetanus toxoid, adsorbed Allergy Intermediate SEVERE Verified 04/23/20 09:18 NAUSEA Consultations 04/23/20 15:51 ED Decision to Admit Stat 04/23/20 15:54 Consult Case Management - Discharge Planning Routine Ordered Studies 04/23/20 10:13 CT hip LT wo con Stat Hospital Course (1) Left acetabular fracture: The patient is a 50-year-old female who presents with acute traumatic left acetabular fracture secondary to mechanical fall while running 1 day prior. In the emergency department x-rays and CT scan of the left hip demonstrate a minimally displaced acetabular fracture. Patient ambulated with physical therapy in the emergency department however due to ambulatory dysfunction and pain it was decided that she be admitted for observation overnight and further pain control. Hospital Course: On 04/23/2020 the patient was admitted to [facility] for observation secondary to left minimally displaced acetabular fracture. Patient pain was well controlled overnight. On 04/24/2020 the patient ambulated with physical therapy. Her pain was better controlled and she progressed well enough that she was deemed stable for discharge home at this time. Discharge Instructions: Upon discharge the patient is to maintain toe-touch nonweightbearing through her left lower extremity. Ambulate with assistive device such as a walker or crutches. The patient was given a script for DVT ppx Lovenox 40 mg daily and should take as directed. The patient was instructed to not drive or travel for long distances until cleared to do so. If the patient develops any symptoms of fevers, chills, nausea, vomiting, increased redness, swelling, pain, they should notify the office and/or proceed to the nearest emergency room. We would like the patient to follow-up in the office in 1 to 2 weeks for repeat x-rays. -Nonweightbearing left lower extremity -Pain control -Reevaluation by physical therapy -Pending therapy evaluation and and pain control, discharge home versus rehab Total Time Total Time Spent Total Time Spent (In Minutes): 30 Discharge Plan Discharge Items Patient Disposition: Home - Home Health Services Reason For Visit: LEFT ACETABULAR FRACTURE Discharge Diagnosis: Left Acetabular Fracture Activity: Per Instructions section Weightbearing: Left non-weightbearing Weightbearing Comment: with walker or crutches Non-emergency contact: Surgeon Call non-emergency contact if: your pain is not controlled Follow-up/Referrals: Eloy Guerrero MD [Primary Care Provider] - Fawn Lopez CRNP [Nurse Practitioner] - (Follow up in the next 2 - 4 weeks. ) Diet: Regular Addtl Attending Provider Instructions: Maintain Non weightbearing status on the Left lower extremity. Use a walker for ambulation. You will be given blood thinning medication that you will need to take for 1 month. Home Health services will be coming to your house initially. Follow up with Dr. Fajardo in 10-14 days. Please call for an appointment. [phone] Follow up with Fawn RICKETTS in 2-4 weeks to discuss any needs for bone density studies etc. [phone] Stand-Alone Forms: [facility], Opioid Pain [facility], Smoking Cessation Medications and DC Order Prescriptions: New enoxaparin 40 mg/0.4 mL Syringe 40 mg subcut Q24H 30 Days Qty: 12 RF: 0 acetaminophen 500 mg Tablet 1,000 mg PO Q8H PRN (Reason: pain) 14 Days Qty: 42 RF: 0 oxycodone 5 mg Tablet 5 mg PO Q6H MDD 4 PRN (Reason: pain) Qty: 30 RF: 0 Continued multivitamin Tablet 1 tab PO HS RF: 0 glucosamine-chondroitin [Osteo Bi-Flex] 250-200 mg Tablet 1 tab PO BID RF: 0 Discontinued acetaminophen [Tylenol Extra Strength] 500 mg Tablet 500 mg PO UD PRN (Reason: Pain) RF: 0 Discharge Orders: Discharge Order (Routine); Ordered 04/24/20 Ordered By: Casey Hoffman/Other Patient Handouts: Preventing Deep Vein Thrombosis Admission Data Admit Date/Time: 04/23/20 15:54 Attending Provider: Boubacar Fajardo Admit Provider: Boubacar Fajardo Primary Care Provider: Eloy Guerrero Other Providers: Boubacar Fajardo Other Interventions: Discharge Summary Assessment (RN) Last Done: 04/24/20 15:50 DC Date/Time DO NOT enter until pt leaves facility: 04/24/20 16:16
== END 2020-04-24 16:16 | disposition home health service (06) ==
LOC: ED 08:23 → 3E 08:23